=== PATIENT | male | born 1995 | race Caucasian/White ===

== ENCOUNTER 2016-07-08 15:38 | Emergency (ER) | payer BC ==
[2016-07-08 15:48] VITALS: BP 119/60; PULSE 77; RESP 18; TEMP 98
--- NOTE | 2016-07-08 16:13 | ED ---
Wound/Laceration HPI - General Chief Complaint: Wound/Laceration Stated Complaint: finger lac left middle Time Seen by Provider: 07/08/16 15:51 Source: patient, RN notes reviewed Mode of arrival: ambulatory Limitations: no limitations - History of Present Illness Initial Comments: 20-year-old male presents to the emergency Department chief complaint of left middle finger laceration. Patient states this happened by sheet metal at work today. Patient states he has no numbness or tingling. Patient denies any pain to the area. Patient states she was concerned due to being "without that he should be evaluated. Patient denies any fever chills cough cold runny nose with this. Patient denies any other incident from the incident.Patient denies any recent fever, chills, shortness of breath, chest pain, back pain, abdominal pain, nausea vomiting, numbness or tingling, dysuria or hematuria, constipation or diarrhea, headaches or visual changes, or any other current symptoms. Review of Systems ROS Statement: Those systems with pertinent positive or pertinent negative responses have been documented in the HPI. ROS Other: All systems not noted in ROS Statement are negative. Past Medical History Past Medical History: No Reported History History of Any Multi-Drug Resistant Organisms: None Reported Past Surgical History: No Surgical Hx Reported Past Psychological History: No Psychological Hx Reported Smoking Status: Current every day smoker Past Alcohol Use History: None Reported Past Drug Use History: None Reported General Exam - General Exam Comments Initial Comments: General: The patient is awake and alert, in no distress, and does not appear acutely ill. Neck: The neck is supple, there is no tenderness. Cardiovascular: There is a regular rate and rhythm. No murmur, rub or gallop is appreciated. Respiratory: Lungs are clear to auscultation, respirations are non-labored, breath sounds are equal. No wheezes, stridor, rales, or rhonchi. Musculoskeletal: Sensation intact with 2+ pulses. Left upper extremity. Full motion of left hand and all digits with normal sensation. 5 out of 5 muscle strength testing. Patient is 0.5 and a meter laceration to the distal aspect of the left middle finger. There is no injury to deep tissue noted. Neurological: CN II-XII intact, There are no obvious motor or sensory deficits. Coordination appears grossly intact. Speech is normal. Skin: Skin is warm and dry and no rashes or lesions are noted. Psychiatric: Normal mood and affect. Limitations: no limitations Course Vital Signs 07/08/16 15:42 Temperature 98.0 F Pulse Rate 77 Respiratory 18 Rate Blood Pressure 119/60 O2 Sat by Pulse 98 Oximetry Procedures - Procedures Initial comment: At this time the patient was cleaned and prepped. Patient underwent Dermabond repair. Patient tolerated the procedure well. Medical Decision Making - Medical Decision Making 20-year-old male presents emergency Department chief complaint of left middle finger laceration. Patient was offered prescription repair however he stated that he would like Dermabond repair. We did do this. We discussed the risks of this. We did discuss possible side effects. We did discuss return parameters and follow-up. We did discuss care. We discussed all the patient and family's questions. He stated he understood and agreed plan. They will be discharged home. Disposition Clinical Impression: Laceration of left middle finger Disposition: HOME SELF-CARE Condition: Stable Instructions: Skin Adhesive Care (ED) Additional Instructions: Please use medication as discussed. Please follow up with family doctor if symptoms have not improved over the next two days. Please return to the emergency room if your symptoms increase or worsen or for any other concerns. Referrals: Jv Strong MD [STAFF PHYSICIAN] - 1-2 days Time of Disposition: 16:23
--- NOTE | 2016-07-08 16:19 | XR ---
EXAMINATION TYPE: XR finger LT DATE OF EXAM: 07/08/2016 4:14 PM COMPARISON: NONE HISTORY: Laceration of the distal third digit TECHNIQUE: 3 views of the left third digit were obtained radiographically. FINDINGS: Soft tissue laceration does not extend to the distal phalanx tuft is seen of the radial and volar aspect of the distal third digit. No evidence of fracture or dislocation. Osseous mineralizati on is unremarkable. No radiopaque foreign body is seen. IMPRESSION: Laceration of the distal third digit soft tissues without fracture, dislocation, radiopaq ue foreign body.
[2016-07-08] MEDS ORDERED: TOPICAL SKIN ADHESIVE 1 EACH AMP TOPICAL ONE (16:25)
== END 2016-07-08 16:30 | disposition home or self-care (01) ==
LOC: EC 15:38
DX: S61.213A Laceration without foreign body of left middle finger without damage to nail, initial encounter (principal); F17.200 Nicotine dependence, unspecified, uncomplicated; W26.8XXA Contact with other sharp object(s), not elsewhere classified, initial encounter; Y93.89 Activity, other specified; Y99.0 Civilian activity done for income or pay; Y92.69 Other specified industrial and construction area as the place of occurrence of the external cause
CPT/HCPCS: 12001; 99283